=== PATIENT | male | born 1995 | race Two or more races ===

== ENCOUNTER 2017-07-05 09:06 | Emergency (ER) | payer OTHER ==
[~2017-07-05] VITALS: Ht 175.3 cm; Wt 77.1 kg
[2017-07-05 09:20] VITALS: BP 142/55
[2017-07-05 09:40] LABS: APPEARANCE,URINE CLEAR; KETONES,URINE NEGATIVE (NEGATIVE); LEUKOCYTE ESTERASE ,URINE NEGATIVE (NEGATIVE); NITRITE,URINE NEGATIVE (NEGATIVE); PH,URINE 7 (4.5-8.0); PROTEIN,URINE NEGATIVE (NEGATIVE); UROBILINOGEN,URINE NORMAL MG/DL (0.0-1.0)
--- NOTE | 2017-07-05 09:50 | Emergency Room Report ---
History of Present Illness General Chief Complaint: Male Urogenital Problems Source: Patient Present Illness HPI Patient reports that several months ago he was having some discomfort with his lower back Patient also continued to have some burning on urination with urination Patient had initial testing done by primary physician and reported negative for all STDs however after continued discomfort patient was put on Cipro he felt that his symptoms were improved however now for the past several days again symptoms of low back discomfort with burning urination resume Denies any abdominal pain denies any difficulty urination patient denies any sexual activity over the past 3 months denies any chest pain or shortness of breath denies any fevers or chills Allergies: Coded Allergies: No Known Allergies (Unverified , 07/05/17) Patient History Past Medical History: see triage record Pertinent Family History: none Reviewed Nursing Documentation: PMH: Agreed, PSxH: Agreed Nursing Documentation-PMH Past Medical History: No Stated History Review of Systems All Other Systems: negative except mentioned in HPI Physical Exam Vital Signs Date Time Temp Pulse Resp B/P (MAP) Pulse Ox O2 Delivery O2 Flow Rate FiO2 07/05/17 09:10 97.9 88 18 146/77 99 Room Air Sp02 EP Interpretation: reviewed, normal General Appearance: well appearing, no apparent distress Head: normocephalic, atraumatic Eyes: bilateral eye PERRL, bilateral eye EOMI ENT: hearing grossly normal, normal pharynx, TMs + canals normal, uvula midline Neck: full range of motion, supple, no meningismus, no bony tend Respiratory: lungs clear, normal breath sounds, no rhonchi, no respiratory distress, no retraction, no accessory muscle use Cardiovascular #1: normal peripheral pulses, regular rate, rhythm, no edema, no gallop, no JVD, no murmur Gastrointestinal: normal bowel sounds, non tender, soft, no mass, no organomegaly, non-distended, no guarding, no hernia, no pulsatile mass, no rebound Genitourinary: no CVA tenderness Musculoskeletal: normal inspection Neurologic: oriented x3, responsive, 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 as tested, motor strength/ tone normal, sensory intact Psychiatric: mood/affect normal Skin: normal color, no rash, warm/dry, palpation normal Lymphatic: normal inspection, no adenopathy Medical Decision Making Diagnostic Impression: Primary Impression: Dysuria ER Course Multiple differentials considered including but not limited to urethritis, UTI, prostate pathology Patient's urine sample is clear without any evidence of blood At this time patient denies any other symptoms as far as pain on discharge on further discussion patient now reports that he has had this problem since he was a child And has not seen anyone for it Given the findings and clinical evaluation given some chronic component patient is appropriate for close outpatient followup Labs Test 07/05/17 09:15 Urine Color Pale yellow Urine Appearance Clear Urine pH 7 (4.5-8.0) Urine Specific Todd 1.005 (1.005-1.035) Urine Protein Negative (NEGATIVE) Urine Glucose (UA) Negative (NEGATIVE) Urine Ketones Negative (NEGATIVE) Urine Occult Blood Negative (NEGATIVE) Urine Nitrite Negative (NEGATIVE) Urine Bilirubin Negative (NEGATIVE) Urine Urobilinogen Normal MG/DL (0.0-1.0) Urine Leukocyte Esterase Negative (NEGATIVE) Last Vital Signs Date Time Temp Pulse Resp B/P (MAP) Pulse Ox O2 Delivery O2 Flow Rate FiO2 07/05/17 09:20 97.8 70 18 142/55 99 Room Air Status: unchanged Disposition: HOME, SELF-CARE Condition: Stable Scripts Phenazopyridine Hcl* (PYRIDIUM*) 100 Mg Tablet 100 MG ORAL THREE TIMES A DAY for 3 Days, TAB Prov: AMANDA HURTADO D.O. 07/05/17 Referrals: [facility]ERRIN (PCP) Additional Instructions: Patient is provided with the discharge instructions notified to follow up with primary doctor in the next 2-3 days otherwise return to the er with any worsening symptoms. Please note that this report is being documented using [employer] technology. This can lead to erroneous entry secondary to incorrect interpretation by the dictating instrument. AMANDA HURTADO D.O. Jul 05, 2017 09:50
[2017-07-05] MEDS ORDERED: PHENAZOPYRIDIN100 MG ORAL (10:09)
[2017-07-05 10:25] VITALS: BP 123/70
== END 2017-07-05 10:25 | disposition home or self-care (01) ==
LOC: EMR 09:36
DX: R30.0 Dysuria (principal); M54.5 Low back pain
CPT/HCPCS: 81003; 99283